=== PATIENT | male | born 1935 | race Caucasian/White ===

== ENCOUNTER 2020-12-25 11:43 | Inpatient (IN) | payer MEDICARE ==
[~2020-12-25] VITALS: Ht 172.7 cm; Wt 63.9 kg
--- NOTE | 2020-12-25 11:58 | NUR ---
DR. LUNSFORD TO BS TO EVAL PT. AND DISCUSS POC. EKG DONE ON ARRIVAL.
[2020-12-25] MEDS ORDERED: DILTIAZEM 5 MG/ML, 5ML IVPush ONE (12:02)
[2020-12-25] MEDS ORDERED: DILTIAZEM 5 MG/ML, 5ML ONE (12:18)
[2020-12-25 12:27] LABS: BASOPHILS % (AUTO) 0 % (0-1); EOSINOPHILS % (AUTO) 0 % (1-7); LYMPHOCYTES % (AUTO) 13 % (22-44); MEAN CORPUSCULAR HEMOGLOBIN 30.4 pg (27.5-34.5); MEAN CORPUSCULAR HGB CONC 34.1 g/dL (33.2-36.2); MEAN PLATELET VOLUME 7.2 fL (7.4-10.4); MONOCYTES % (AUTO) 7 % (2-9); NEUTROPHILS % (AUTO) 81 % (42-75); PLATELET COUNT 262 x10^3/uL (130-400); RED BLOOD COUNT 5.39 x10^6/uL (4.38-5.82); RED CELL DISTRIBUTION WIDTH 13.1 % (9.4-14.8)
--- NOTE | 2020-12-25 12:29 | NUR ---
PT. HR NOW BETWEEN 100-110. DR. LUNSFORD AWARE; PER MD [facility] FOR NOW. LABS HAVE BEEN COMPLETED. COVID SWAB COLLECTED. X-RAY COMPLETED. ALL MONITORS WERE PLACED ON ARRIVAL.
[2020-12-25] MEDS ORDERED: SODIUM CHLORIDE 0.9% 1,000ML IVBOLUS ONE ×2 (12:30→13:00)
[2020-12-25] MEDS ORDERED: SODIUM CHLORIDE FLUSH 10ML SYR IVF ONE (12:30)
[2020-12-25 12:35] LABS: ALANINE AMINOTRANSFERASE 25 U/L (12-78); ALBUMIN 3.7 g/dL (3.4-5.0); ANION GAP 11 mmol/L (5-15); CALCIUM 9.4 mg/dL (8.5-10.1); CHLORIDE 102 mmol/L (98-107); CREATININE 1.92 mg/dL (0.7-1.3)
[2020-12-25 12:35] LABS: INTERNATIONAL NORMALIZED RATIO 1.03 (0.93-1.1)
[2020-12-25 12:40] LABS: ALKALINE PHOSPHATASE 74 U/L (45-117); BILIRUBIN,TOTAL 0.5 mg/dL (0.2-1.0); TOTAL PROTEIN 8.2 g/dL (6.4-8.2); TROPONIN I < 0.015 ng/mL (0.000-0.045)
--- NOTE | 2020-12-25 12:51 | NUR ---
IVF CONTINUES INFUSING. PT. INSTRUCTED ON NEED FOR URINE SAMPLE.
--- NOTE | 2020-12-25 12:57 | NUR ---
DR. LUNSFORD IN FOR RE-EVAL. PT. HR NOW BETWEEN 100-130. GIVING CARDIZEM NOW PER MD ORDER.
[2020-12-25 12:58] LABS: FREE T4 (FREE THYROXINE) 0.87 ng/dL (0.76-1.46)
[2020-12-25] MEDS ORDERED: SIMV5TAB14 PO (13:03)
[2020-12-25] MEDS ORDERED: ASPI-963 PO (13:03)
[2020-12-25] MEDS ORDERED: FINA5TAB4 PO (13:03)
[2020-12-25] MEDS ORDERED: CHOL10003 PO (13:03)
[2020-12-25] MEDS ORDERED: AMLO2.5T5 PO (13:03)
--- NOTE | 2020-12-25 13:18 | NUR ---
FIRST LITER NS NEARLY COMPLETED. PT. ATTEMPTED TO VOID BUT UNABLE AT THIS TIME. WILL CONTINUE TO INFUSE IVF PER ORDER AND RE-ATTEMPT.
--- NOTE | 2020-12-25 13:46 | NUR ---
Urine sample sent to lab.
[2020-12-25 13:58] LABS: MICROSCOPIC NOT IND
--- NOTE | 2020-12-25 14:23 | NUR ---
PT. DENIES NEEDS. IVF CONTINUES TO INFUSE PER ORDER. PT. AWAITING PROVIDER RECHECK FOR DISPO.
--- NOTE | 2020-12-25 14:47 | NUR ---
PT. STATES HE IS FEELING MUCH BETTER THAN WHEN HE CAME IN. PT. USING CELL PHONE. DENIES ANY NEEDS AT THIS TIME. AWAITING ADMIT ORDERS. ALL SAFETY MEASURES OBSERVED.
--- NOTE | 2020-12-25 14:59 | NUR ---
Report received from Shradhda KUO, assuming care of pt at this time
--- NOTE | 2020-12-25 16:37 | NUR ---
pt sleeping in bed, IVF infusing. all monitors attached, vss, nadn. awaiting admit at this time
--- NOTE | 2020-12-25 17:52 | NUR ---
smh at bedside for eval
[2020-12-25] MEDS ORDERED: ONDANSETRON 2MG/ML, 2ML IVPush PRN (18:00)
[2020-12-25] MEDS ORDERED: ACETAMINOPHEN 325 MG TABLET PO PRN (18:00)
[2020-12-25] MEDS ORDERED: DOCUSATE 100 MG CAPSULE PO PRN (18:00)
[2020-12-25] MEDS ORDERED: BISACODYL 10 MG SUPP PR PRN (18:00)
[2020-12-25] MEDS ORDERED: OXYcodone IR 5MG TABLET PO PRN (18:00)
[2020-12-25] MEDS ORDERED: hydrALAzine 20 MG/ML, 1ML IVPush PRN (18:00)
[2020-12-25] MEDS ORDERED: DILTIAZEM 5 MG/ML, 5ML IVPush PRN (18:00)
[2020-12-25] MEDS ORDERED: POLYETHYLENE GLYCOL 17 GM PACKET PO PRN (18:00)
[2020-12-25] MEDS ORDERED: ONDANSETRON ODT 4 MG PO PRN (18:00)
[2020-12-25] MEDS ORDERED: morphine SULFATE 10 MG/ML, 1ML IVPush PRN (18:00)
[2020-12-25] MEDS ORDERED: PROMETHAZINE 25 MG/ML, 1ML IM PRN (18:00)
--- NOTE | 2020-12-25 18:39 | NUR ---
pt taken to ct
[2020-12-25 19:16] VITALS: BP 144/79
[2020-12-25] MEDS: SODIUM CHLORIDE 0.9% 1,000 ML IV SCH (19:22)
[2020-12-25] MEDS: ENOXAPARIN 60 MG/0.6 ML SQ SCH (19:23)
[2020-12-25] MEDS: PLEASE ENTER ALLERGIES MC SCH ×2 (19:49→19:50)
[2020-12-25] MEDS: SIMVASTATIN 5 MG TABLET PO SCH (21:21)
[2020-12-25 21:26] VITALS: BP 111/74
[2020-12-25] MEDS: DILTIAZEM 30 MG TABLET PO SCH (21:30)
[2020-12-26 03:28] VITALS: BP 134/73
[2020-12-26] MEDS: DILTIAZEM 30 MG TABLET PO SCH ×4 (03:30→21:00)
[2020-12-26] MEDS: SODIUM CHLORIDE 0.9% 1,000 ML IV SCH (05:06)
[2020-12-26 06:36] LABS: BASOPHILS % (AUTO) 0 % (0-1); EOSINOPHILS % (AUTO) 0 % (1-7); LYMPHOCYTES % (AUTO) 17 % (22-44); MEAN CORPUSCULAR HEMOGLOBIN 29.8 pg (27.5-34.5); MEAN CORPUSCULAR HGB CONC 33.7 g/dL (33.2-36.2); MEAN PLATELET VOLUME 6.9 fL (7.4-10.4); MONOCYTES % (AUTO) 10 % (2-9); NEUTROPHILS % (AUTO) 73 % (42-75); PLATELET COUNT 199 x10^3/uL (130-400); RED BLOOD COUNT 4.46 x10^6/uL (4.38-5.82)
[2020-12-26 07:30] VITALS: BP 135/79
[2020-12-26 07:42] LABS: ALANINE AMINOTRANSFERASE 20 U/L (12-78); ALBUMIN 2.7 g/dL (3.4-5.0); ANION GAP 8 mmol/L (5-15); CALCIUM 7.7 mg/dL (8.5-10.1); CHLORIDE 113 mmol/L (98-107)
[2020-12-26 07:51] LABS: ALKALINE PHOSPHATASE 55 U/L (45-117); BILIRUBIN,TOTAL 0.3 mg/dL (0.2-1.0); CHOL/HDL RATIO 2.7; CHOLESTEROL, TOTAL 111 mg/dL (140-239); CREATININE 1.19 mg/dL (0.7-1.3); HDL CHOL % 37 % (26-37); HDL CHOLESTEROL (DIRECT) 41 mg/dL (40-60); LDL CHOLESTEROL,CALCULATED 46 mg/dL (54-169); LDL/HDL RATIO 1.1 (0.5-3.0); TOTAL PROTEIN 6.3 g/dL (6.4-8.2); TRIGLYCERIDES 118 mg/dL (50-200); VLDL CHOLESTEROL 24 mg/dL (0-25)
[2020-12-26] MEDS: FINASTERIDE 5 MG TABLET PO SCH (09:53)
[2020-12-26] MEDS: ASPIRIN 81 MG TABLET EC PO SCH (09:53)
[2020-12-26] MEDS: CHOLECALCIFEROL 1,000 UNIT TABLET PO SCH (09:53)
[2020-12-26 14:00] VITALS: BP 137/74
[2020-12-26 19:10] VITALS: BP 130/66
[2020-12-26] MEDS: ENOXAPARIN 60 MG/0.6 ML SQ SCH (19:20)
[2020-12-26] MEDS: SIMVASTATIN 5 MG TABLET PO SCH (21:00)
[2020-12-27 01:48] VITALS: BP 126/73
[2020-12-27] MEDS: DILTIAZEM 30 MG TABLET PO SCH (03:27)
[2020-12-27 06:05] LABS: BASOPHILS % (AUTO) 0 % (0-1); EOSINOPHILS % (AUTO) 0 % (1-7); LYMPHOCYTES % (AUTO) 35 % (22-44); MEAN CORPUSCULAR HEMOGLOBIN 30.4 pg (27.5-34.5); MEAN CORPUSCULAR HGB CONC 34.3 g/dL (33.2-36.2); MEAN PLATELET VOLUME 6.8 fL (7.4-10.4); MONOCYTES % (AUTO) 9 % (2-9); NEUTROPHILS % (AUTO) 55 % (42-75); PLATELET COUNT 200 x10^3/uL (130-400); RED BLOOD COUNT 4.47 x10^6/uL (4.38-5.82); RED CELL DISTRIBUTION WIDTH 13.1 % (9.4-14.8)
[2020-12-27 06:15] LABS: CHLORIDE 109 mmol/L (98-107)
[2020-12-27 06:19] LABS: ANION GAP 8 mmol/L (5-15); CREATININE 0.98 mg/dL (0.7-1.3)
[2020-12-27 08:11] VITALS: BP 96/70
[2020-12-27 08:28] VITALS: BP 102/60
[2020-12-27] MEDS: CHOLECALCIFEROL 1,000 UNIT TABLET PO SCH (10:54)
[2020-12-27] MEDS: FINASTERIDE 5 MG TABLET PO SCH (10:54)
[2020-12-27] MEDS: METOPROLOL TARTRATE 25 MG TAB PO SCH ×2 (10:54→18:30)
[2020-12-27] MEDS: ASPIRIN 81 MG TABLET EC PO SCH (10:54)
[2020-12-27 12:31] VITALS: BP 114/67
[2020-12-27 18:26] VITALS: BP 126/68
[2020-12-27] MEDS: ENOXAPARIN 60 MG/0.6 ML SQ SCH (18:30)
[2020-12-27] MEDS: SIMVASTATIN 5 MG TABLET PO SCH (20:50)
[2020-12-28 02:00] VITALS: BP 119/62
[2020-12-28 06:19] VITALS: BP 131/75
[2020-12-28] MEDS: METOPROLOL TARTRATE 25 MG TAB PO SCH ×2 (06:22→17:51)
[2020-12-28 07:45] LABS: BASOPHILS % (AUTO) 0 % (0-1); EOSINOPHILS % (AUTO) 0 % (1-7); LYMPHOCYTES % (AUTO) 16 % (22-44); MEAN CORPUSCULAR HEMOGLOBIN 30.5 pg (27.5-34.5); MEAN CORPUSCULAR HGB CONC 34.8 g/dL (33.2-36.2); MONOCYTES % (AUTO) 7 % (2-9); NEUTROPHILS % (AUTO) 78 % (42-75); PLATELET COUNT 174 x10^3/uL (130-400); RED BLOOD COUNT 4.13 x10^6/uL (4.38-5.82); RED CELL DISTRIBUTION WIDTH 12.9 % (9.4-14.8)
[2020-12-28 07:46] LABS: ALANINE AMINOTRANSFERASE 19 U/L (12-78); ALBUMIN 2.4 g/dL (3.4-5.0); ANION GAP 7 mmol/L (5-15); CALCIUM 7.8 mg/dL (8.5-10.1); CHLORIDE 104 mmol/L (98-107); CREATININE 0.85 mg/dL (0.7-1.3)
[2020-12-28 07:49] LABS: ALKALINE PHOSPHATASE 44 U/L (45-117); BILIRUBIN,TOTAL 0.4 mg/dL (0.2-1.0); TOTAL PROTEIN 6.1 g/dL (6.4-8.2)
[2020-12-28 08:25] VITALS: BP 123/66
[2020-12-28] MEDS: ASPIRIN 81 MG TABLET EC PO SCH (08:33)
[2020-12-28] MEDS: FINASTERIDE 5 MG TABLET PO SCH (08:33)
[2020-12-28] MEDS: CHOLECALCIFEROL 1,000 UNIT TABLET PO SCH (08:34)
[2020-12-28 14:01] VITALS: BP 128/71
[2020-12-28] MEDS: ENOXAPARIN 60 MG/0.6 ML SQ SCH (17:50)
[2020-12-28 18:01] VITALS: BP 123/69
[2020-12-28 20:00] VITALS: BP 132/72
[2020-12-28] MEDS: SIMVASTATIN 5 MG TABLET PO SCH (21:04)
[2020-12-29 00:29] VITALS: BP 120/67
[2020-12-29 05:37] VITALS: BP 132/70
[2020-12-29] MEDS: METOPROLOL TARTRATE 25 MG TAB PO SCH ×2 (05:39→18:11)
[2020-12-29 07:57] VITALS: BP 114/65
[2020-12-29] MEDS: ASPIRIN 81 MG TABLET EC PO SCH (08:34)
[2020-12-29] MEDS: FINASTERIDE 5 MG TABLET PO SCH (08:35)
[2020-12-29] MEDS: CHOLECALCIFEROL 1,000 UNIT TABLET PO SCH (08:35)
[2020-12-29] MEDS ORDERED: METO25TA35 PO (12:33)
[2020-12-29] MEDS ORDERED: APIX2.5T PO ×2 (12:33)
[2020-12-29 12:35] VITALS: BP 122/58
[2020-12-29] MEDS: ENOXAPARIN 60 MG/0.6 ML SQ SCH (12:45)
[2020-12-29 19:57] VITALS: BP 102/59
[2020-12-29] MEDS ORDERED: GOLYTELY 4,000ML ORAL.SOL PO ONE (20:00)
[2020-12-29] MEDS: SIMVASTATIN 5 MG TABLET PO SCH (20:49)
[2020-12-30 02:12] VITALS: BP 117/60
[2020-12-30 06:08] VITALS: BP 125/68
[2020-12-30] MEDS: METOPROLOL TARTRATE 25 MG TAB PO SCH ×2 (06:10→17:34)
[2020-12-30] MEDS: FINASTERIDE 5 MG TABLET PO SCH (09:03)
[2020-12-30] MEDS: CHOLECALCIFEROL 1,000 UNIT TABLET PO SCH (09:03)
[2020-12-30] MEDS: ASPIRIN 81 MG TABLET EC PO SCH (09:03)
[2020-12-30 13:15] VITALS: BP 123/71
[2020-12-30 19:03] VITALS: BP 114/68
[2020-12-30] MEDS: SIMVASTATIN 5 MG TABLET PO SCH (20:07)
[2020-12-31 01:38] VITALS: BP 114/69
[2020-12-31] MEDS: METOPROLOL TARTRATE 25 MG TAB PO SCH (05:11)
[2020-12-31 05:38] LABS: ANION GAP 4 mmol/L (5-15); CALCIUM 8.3 mg/dL (8.5-10.1); CHLORIDE 104 mmol/L (98-107)
[2020-12-31 05:44] LABS: BASOPHILS % (AUTO) 0 % (0-1); EOSINOPHILS % (AUTO) 2 % (1-7); LYMPHOCYTES % (AUTO) 24 % (22-44); MEAN CORPUSCULAR HEMOGLOBIN 30.5 pg (27.5-34.5); MEAN CORPUSCULAR HGB CONC 35.3 g/dL (33.2-36.2); MEAN PLATELET VOLUME 7.2 fL (7.4-10.4); MONOCYTES % (AUTO) 16 % (2-9); NEUTROPHILS % (AUTO) 58 % (42-75); PLATELET COUNT 273 x10^3/uL (130-400); RED BLOOD COUNT 3.29 x10^6/uL (4.38-5.82); RED CELL DISTRIBUTION WIDTH 12.5 % (9.4-14.8)
[2020-12-31 09:25] VITALS: BP 107/67
[2020-12-31] MEDS: ASPIRIN 81 MG TABLET EC PO SCH (09:40)
[2020-12-31] MEDS: FINASTERIDE 5 MG TABLET PO SCH (09:40)
[2020-12-31] MEDS: CHOLECALCIFEROL 1,000 UNIT TABLET PO SCH (09:40)
== END 2020-12-31 16:02 | disposition home or self-care (01) | DRG 308 ==
LOC: ED 12:13 → EDIP 17:34 → 4WST 18:38
PROVIDERS: ADMIT Internal Medicine; ATTEND Internal Medicine
DX: I48.91 Unspecified atrial fibrillation (principal); U07.1 COVID-19; J96.01 Acute respiratory failure with hypoxia; N17.0 Acute kidney failure with tubular necrosis; E87.2 Acidosis; K92.1 Melena; I48.92 Unspecified atrial flutter; E78.5 Hyperlipidemia, unspecified; I12.9 Hypertensive chronic kidney disease with stage 1 through stage 4 chronic kidney disease, or unspecified chronic kidney disease; I25.10 Atherosclerotic heart disease of native coronary artery without angina pectoris; K76.89 Other specified diseases of liver; N18.9 Chronic kidney disease, unspecified; N40.0 Benign prostatic hyperplasia without lower urinary tract symptoms; Z79.899 Other long term (current) drug therapy; Z95.5 Presence of coronary angioplasty implant and graft
CPT/HCPCS: 36415; 70450; 71045; 80048; 80053; 80061; 81003; 83036; 83605; 83735; 83880; 84100; 84439; 84443; 84484; 85014; 85018; 85025; 85610; 86850; 86900; 87635; 93005; 93308; 93321; 93325; 96360; G0378; J1650; J2405; Q0162; U0005; J7030; U0003

== ENCOUNTER → 2021-01-30 | Outpatient (CLI) | payer MEDICARE ==
[~2021-01-30] MED LIST: AMLO2.5T5 PO; APIX2.5T PO; ASPI-963 PO; CHOL10003 PO; FINA5TAB4 PO; METO25TA35 PO; SIMV5TAB14 PO
[2021-01-30 11:46] LABS: ALBUMIN 3.7 g/dL (3.4-5.0); ANION GAP 7 mmol/L (5-15); CALCIUM 8.8 mg/dL (8.5-10.1); CHLORIDE 108 mmol/L (98-107); CHOLESTEROL, TOTAL 129 mg/dL (140-239)
[2021-01-30 11:49] LABS: ALANINE AMINOTRANSFERASE 25 U/L (12-78); ALKALINE PHOSPHATASE 61 U/L (45-117); BILIRUBIN,TOTAL 0.8 mg/dL (0.2-1.0); CHOL/HDL RATIO 3.1; CREATININE 1.12 mg/dL (0.7-1.3); HDL CHOL % 33 % (26-37); HDL CHOLESTEROL (DIRECT) 42 mg/dL (40-60); LDL CHOLESTEROL,CALCULATED 70 mg/dL (54-169); LDL/HDL RATIO 1.7 (0.5-3.0); TOTAL PROTEIN 7.9 g/dL (6.4-8.2); TRIGLYCERIDES 85 mg/dL (50-200); VLDL CHOLESTEROL 17 mg/dL (0-25)
== END | disposition home or self-care (01) ==
LOC: LAB 11:14
PROVIDERS: ATTEND Internal Medicine Cardiovascular Disease
DX: E78.5 Hyperlipidemia, unspecified (principal)
CPT/HCPCS: 36415; 80053; 80061